=== PATIENT | female | born 1970 | race Asian ===

== ENCOUNTER → 2016-11-24 | Outpatient (CLI) | payer OTHER ==
--- NOTE | 2016-11-24 16:54 | MA ---
Screening Digital Mammogram with iCAD Analysis Clinical Indications: 46-year-old female with no indicated family history of breast cancer, presenti for routine annual mammographic screening. Technique: Standard cephalocaudal projections are obtained. Digital breast tomosynthesis was performe d in the MLO projection with reconstruction at 1.0 mm slice thickness, and composite MLO views were r econstructed. This examination is processed by the iCAD computer aided detection system. Comparison Studies: Bilateral digital screening mammography, dated 02/14/2013 and 12/29/2011. Breast Density: Type C (Heterogeneously dense). Findings: CAD was reviewed, and is negative. There are no new masses, suspicious microcalcifications, or secondary signs of malignancy identified. There has been no significant change in the appearance of either breast. Impression: Negative mammography. BI-RADS Category 1. Recommendation: Routine mammographic screening in one year as long as physical examination is negativ e in this patient with heterogeneously dense breast parenchyma. [facility] will send a result letter to the patient. Negative mammography should not preclude additional workup of a clinically suspicious finding. The patient's information is entered into a reminder system with a target due date for her next mammo gram.
== END ==
LOC: FIMAGING 08:59
DX: Z12.31 Encounter for screening mammogram for malignant neoplasm of breast (principal)
CPT/HCPCS: G0202